=== PATIENT | male | born 1950 | race Caucasian/White ===

== ENCOUNTER 2020-11-05 06:32 | Emergency (ER) | payer OTHER ==
[~2020-11-05] VITALS: Ht 175.3 cm; Wt 73.0 kg
[2020-11-05] MEDS ORDERED: COZAAR25 MG (06:52)
[2020-11-05] MEDS ORDERED: UROXATRAL10 MG (06:52)
== END 2020-11-05 09:36 | disposition home or self-care (01) ==
LOC: ER 06:32
DX: R33.8 Other retention of urine (principal); N36.8 Other specified disorders of urethra